=== PATIENT | female | born 1995 | race Hispanic/Latino ===

== ENCOUNTER 2021-10-17 13:54 | Inpatient (IN) | payer OTHER ==
[2021-10-17] MEDS ORDERED: ePHEDrine SULFATE 50 MG/1 ML INJ IV PRN ×2 (15:04→19:29)
[2021-10-17] MEDS ORDERED: ONDANSETRON 4 MG/2 ML INJ IV PRN ×2 (15:04→21:25)
[2021-10-17] MEDS ORDERED: MINERAL OIL 30 ML ORAL LIQD PO PRN (15:04)
[2021-10-17] MEDS ORDERED: TERBUTALINE 1 MG/1 ML INJ SUB-Q PRN (15:04)
[2021-10-17] MEDS ORDERED: fentaNYL 100 MCG/2 ML INJ IV PRN (15:04)
[2021-10-17] MEDS ORDERED: CARBOPROST TROMETHAMINE 250 MCG/1 ML INJ IM PRN (15:04)
[2021-10-17] MEDS ORDERED: LOPERAMIDE 2 MG CAP PO PRN (15:04)
[2021-10-17] MEDS ORDERED: BUTORPHANOL 2 MG/1 ML INJ IV PRN (15:04)
[2021-10-17] MEDS ORDERED: OXYTOCIN 10 UNIT/1 ML INJ IM PRN (15:04)
[2021-10-17] MEDS ORDERED: miSOPROStol 200 MCG TAB PR PRN (15:04)
[2021-10-17] MEDS ORDERED: METHYLERGONOVINE MALEATE 0.2 MG/ML VIAL IM PRN (15:04)
[2021-10-17] MEDS ORDERED: LIDOCAINE (2%) 20 MG/1 ML VIAL 20 ML MDV INFILTRATI ONE (15:30)
[2021-10-17] MEDS ORDERED: LACTATED RINGERS 1,000 ML IV SCH (15:30)
[2021-10-17] MEDS ORDERED: ACETAMINOPHEN 500 MG TAB PO ONE (16:00)
[2021-10-17] MEDS ORDERED: AMPICILLIN/NS 2 GM/100 ML 2 GM/100 ML BAG IV ONE (16:00)
[2021-10-17] MEDS ORDERED: OXYTOCIN DRIP 30 UNITS/500 ML BAG IV SCH ×2 (16:00)
[2021-10-17 17:26] LABS: Hematocrit 36.6 % (30.3-42.9); Hemoglobin 12.4 gm/dl (10.1-14.3); Mean Corpuscular HGB Conc 34 % (30-34); Mean Corpuscular Volume 82 fl (79-97); Platelet Count 299 K/mm3 (140-440); Red Blood Count 4.46 M/mm3 (3.65-5.03)
[2021-10-17 17:40] LABS: Bilirubin,Urine NEG (Negative); Blood,Urine NEG (Negative); Calcium Oxalate Crystals,Urine 2+; Color,Urine Yellow (Yellow); Mucus,Urine 2+ /HPF; Protein,Urine <15 mg/dL mg/dL (Negative); Urobilinogen,Urine < 2.0 mg/dL (<2.0)
[2021-10-17 18:04] LABS: HCG,Quantitative 7096 mIU/mL (0-4); Hepatitis C Virus Antibody Non-Reactive (NonReactive)
[2021-10-17 18:14] LABS: Amphetamine Screen,Urine PRESUMPTIVE NEGATIVE; Benzodiazepines Screen,Urine PRESUMPTIVE NEGATIVE; Cannabinoid Screen,Urine PRESUMPTIVE POSITIVE; Cocaine Screen,Urine PRESUMPTIVE NEGATIVE; Methadone Screen,Urine PRESUMPTIVE NEGATIVE; Opiate Screen,Urine PRESUMPTIVE NEGATIVE
[2021-10-17] MEDS ORDERED: NALOXONE 2 MG/2 ML INJ IV PRN (19:29)
[2021-10-17] MEDS ORDERED: fentaNYL-BUPIV 2 MCG/ML-0.125% 200 MCG/100 ML BAG EPIDURAL SCH (20:00)
[2021-10-17] MEDS ORDERED: AMPICILLIN/NS 1 GM/50 ML 1 GM/50 ML BAG IV SCH (20:00)
--- NOTE | 2021-10-17 20:11 | Anesthesia Consultation ---
Anesthesia Consult and Med Hx Date of service: 10/17/21 - Airway Anesthetic Teeth Evaluation: Poor ROM Head & Neck: Adequate Mental/Hyoid Distance: Adequate Mallampati Class: Class II Intubation Access Assessment: Probably Good - Pulmonary Exam CTA: Yes - Cardiac Exam Cardiac Exam: RRR - Pre-Operative Health Status ASA Pre-Surgery Classification: ASA3 Proposed Anesthetic Plan: Epidural - Pulmonary Hx Smoking: No Hx Asthma: No Hx Respiratory Symptoms: No SOB: No COPD: No Hx Pneumonia: No - Cardiovascular System Hx Hypertension: No - Central Nervous System Hx Neuromuscular Disorder: No Hx Seizures: No Hx Psychiatric Problems: No - Gastrointestinal Hx Gastroesophageal Reflux Disease: Yes - Endocrine Hx Renal Disease: No Hx End Stage Renal Disease: No Hx Insulin Dependent Diabetes: No Hx Non-Insulin Dependent Diabetes: No Hx Hypothyroidism: No Hx Hyperthyroidism: No - Hematic Hx Anemia: No Hx Sickle Cell Disease: No - Other Systems Hx Alcohol Use: No Hx Substance Use: Yes (positive THC ) Hx Obesity: Yes
--- NOTE | 2021-10-17 20:19 | Progress Note ---
Labor Epidural - Labor Epidural Start Time: 19:38 Stop Time: 19:53 Performed by:: JANETTE HUMPHREY Procedure: Patient is requesting epidural for labor pain. H&P and labs reviewed. Procedure explained, questions answered, consent obtained. Patient placed in sitting position with monitors applied. Timeout performed immediately before start of procedure. Prep/drape in usual sterile fashion. Skin localized 3 mL 1% lidocaine at L[3]-L[4] interspace. 17-gauge Touhy epidural needle advanced to YORDY with saline at [8] cm [id number]. No blood/CSF noted via epidural needle. Epidural catheter advanced to [12] cm. Negative aspiration for blood and CSF via catheter, negative response to test dose 3 ml 1.5% lidocaine w/ Epi. Sterile dressing applied followed by tape reinforcement. Patient tolerated procedure well. No immediate complications noted.
--- NOTE | 2021-10-17 20:42 | History and Physical Report ---
History of Present Illness Date of examination: 10/17/21 Date of admission: 10/17/21 13:55 Chief complaint: Leakage of fluid History of present illness: 26-year-old -0-0-1 at 38+0 weeks who presents with a complaint of leakage of fluid since yesterday. The patient also reports regular uterine contractions. There are no records available for review. There is lab evidence that the patient is group beta Streptococcus negative Past History Past Medical History: no pertinent history Past Surgical History: no surgical history Social history: single - Obstetrical History Expected Date of Delivery: 10/31/21 Actual Gestation: 38 Week(s) 0 Day(s) : 2 Para: 1 Hx # Term Pregnancies: 1 Number of Pregnancies: 0 Spontaneous Abortions: 0 Induced : 0 Number of Living Children: 1 Medications and Allergies Allergies Allergy/AdvReac Type Severity Reaction Status Date / Time No Known Allergies Allergy Unverified 10/17/21 15:04 Active Meds: Active Medications Butorphanol Tartrate (Butorphanol 2 Mg/1 Ml Inj) 1 mg IV Q2H PRN PRN Reason: Pain, Moderate(4-6) LABOR PAIN Carboprost Tromethamine (Carboprost Tromethamine 250 Mcg/1 Ml Inj) 250 mcg IM ONCE PRN PRN Reason: Uterine Bleeding Ephedrine Sulfate (Ephedrine Sulfate 50 Mg/1 Ml Inj) 10 mg IV Q2M PRN PRN Reason: Hypotension Fentanyl (Fentanyl 100 Mcg/2 Ml Inj) 100 mcg IV Q2H PRN PRN Reason: Pain,Severe (7-10) LABOR PAIN Oxytocin/Sodium Chloride (Pitocin/Ns 30 Unit/500ml) 30 units in 500 mls @ 2 mls/hr IV TITR CHETAN; Protocol Last Titration: 10/17/21 17:51 Dose: 4 ml/hr, 4 mls/hr Lactated Ringer's (Lactated Ringers) 1,000 mls @ 125 mls/hr IV DIRECT CHETAN Last Admin: 10/17/21 16:42 Dose: 125 mls/hr Oxytocin/Sodium Chloride (Pitocin/Ns 30 Unit/500ml) 30 units in 500 mls @ 40 mls/hr IV TITR CHETAN; Protocol Ampicillin Sodium (Ampicillin/Ns 1 Gm/50 Ml) 1 gm in 50 mls @ 100 mls/hr IV Q4H CHETAN; Protocol Fentanyl/Bupivacaine/Sodium Chlor (Fentanyl-Bupiv 2 Mcg/Ml-0.125%) 200 mcg in 100 mls @ 12 mls/hr EPIDURAL TITR CHETAN; Protocol Loperamide HCl (Loperamide 2 Mg Cap) 2 mg PO ONCE PRN PRN Reason: give with Hemabate Methylergonovine Maleate (Methylergonovine Maleate 0.2 Mg/Ml Vial) 0.2 mg IM ONCE PRN PRN Reason: Uterine Bleeding Mineral Oil (Mineral Oil 30 Ml Oral Liqd) 30 ml PO QHS PRN PRN Reason: Constipation Misoprostol (Misoprostol 200 Mcg Tab) 800 mcg HI ONCE PRN PRN Reason: Uterine Bleeding Naloxone HCl (Naloxone 2 Mg/2 Ml Inj) 0.2 mg IV Q5M PRN PRN Reason: Respiratory sedation Ondansetron HCl (Ondansetron 4 Mg/2 Ml Inj) 4 mg IV Q8H PRN PRN Reason: Nausea And Vomiting Oxytocin (Oxytocin 10 Unit/1 Ml Inj) 10 unit IM ONCE PRN PRN Reason: Uterine Bleeding Terbutaline Sulfate (Terbutaline 1 Mg/1 Ml Inj) 0.25 mg SUB-Q ONCE PRN PRN Reason: Hyperstimulation/Hypertonicity Review of Systems All systems: negative Genitourinary: leakage of fluid, contractions - Vital Signs Vital signs: Vital Signs Pulse Pulse Ox 85 97 10/17/21 14:24 10/17/21 14:24 Temp Pulse Resp BP Pulse Ox 97.6 F 85 18 104/54 96 10/17/21 20:30 10/17/21 20:36 10/17/21 14:37 10/17/21 20:36 10/17/21 20:36 - Physical Exam Breasts: Positive: deferred Cardiovascular: Regular rate Lungs: Positive: Clear to auscultation Abdomen: Positive: normal appearance - Obstetrical Cervical Dilatation: 5 Results Result Diagrams: 10/17/21 16:55 Abnormal lab results 10/17/21 Range/Units 15:15 HCG, Quant 7096 H (0-4) mIU/mL All other labs normal. Assessment and Plan - Patient Problems (1) Active labor at term Current Visit: Yes Status: Acute Plan to address problem: Admit to labor and delivery
--- NOTE | 2021-10-17 21:24 | Procedure Note ---
OB Delivery Note - Delivery Date of Delivery: 10/17/21 Surgeon: MENDY RUELAS Estimated blood loss: 100cc - Vaginal Delivery presentation: vertex Delivery position: OA Intrapartum events: none Delivery augmentation: pitocin Delivery monitor: external FHT, external uterine Route of delivery: Delivery placenta: spontaneous Delivery cord: nuchal cord, 3 umbilical vessels Episiotomy: none Delivery laceration: none Anesthesia: epidural - A at 1 minute: 8 (Weight 6 pounds 6 ounces) at 5 minutes: 9 Gender: Male (weight)
[2021-10-17] MEDS ORDERED: WITCH HAZEL/ GLYCERIN PAD TP PRN (21:25)
[2021-10-17] MEDS ORDERED: diphenhydrAMINE 25 MG CAP PO PRN (21:25)
[2021-10-17] MEDS ORDERED: LANOLIN/ZINC/DIMETHICONE (LANSINOH) 7 GM TP PRN (21:25)
[2021-10-17] MEDS ORDERED: ACETAMINOPHEN 325 MG TAB PO PRN (21:25)
[2021-10-17] MEDS ORDERED: MAGNESIUM HYDROXIDE (MOM) ORAL LIQD UDC PO PRN (21:25)
[2021-10-17] MEDS ORDERED: PROMETHAZINE 25 MG RECT SUPP PR PRN (21:25)
[2021-10-17] MEDS ORDERED: PROMETHAZINE 25 MG TAB PO PRN (21:25)
[2021-10-17] MEDS ORDERED: IBUPROFEN 800 MG TAB PO SCH (22:00)
[2021-10-18] MEDS: HYDROcodone/ACETAMINOPHEN 5-325 MG TAB PO PRN ×3 (04:27→20:46)
--- NOTE | 2021-10-18 07:47 | Progress Note ---
Assessment and Plan A: PPD#1 s/p at term P: Routine care Anticipate discharge tomorrow Subjective - Subjective Date of service: 10/18/21 Principal diagnosis: s/p at term Interval history: Pt reports perineal burning as though she has a tear even though she did not requite stitches. Otherwise she is feeling well. She reports having care at [place]. Patient reports: appetite normal, voiding normally, pain well controlled, ambulating normally : doing well Objective - Vital Signs Latest vital signs: Vital Signs Temp Pulse Resp BP BP Pulse Ox Pulse Ox 10/18/21 04:27 18 100 10/18/21 04:22 97.8 F 71 20 107/58 98 10/18/21 00:29 98 10/17/21 23:35 97.6 F 73 16 119/67 98 10/17/21 23:08 69 100/58 10/17/21 23:05 69 100 10/17/21 23:00 86 100 10/17/21 22:55 65 100 10/17/21 22:53 66 101/57 10/17/21 22:50 68 100 10/17/21 22:45 71 98 10/17/21 22:40 68 99 10/17/21 22:38 73 100/52 10/17/21 22:35 75 99 10/17/21 22:30 72 98 10/17/21 22:25 69 99 10/17/21 22:23 70 103/52 10/17/21 22:20 73 99 10/17/21 22:15 74 100 10/17/21 22:10 76 98 10/17/21 22:08 76 107/55 10/17/21 22:05 84 98 10/17/21 22:03 70 109/55 10/17/21 22:00 76 98 10/17/21 21:55 73 99 10/17/21 21:53 75 88/52 10/17/21 21:50 68 98 10/17/21 21:45 78 98 10/17/21 21:40 82 100 10/17/21 21:37 82 91/49 10/17/21 21:35 99 H 99 10/17/21 21:34 76 75/39 10/17/21 21:32 75 68/37 10/17/21 21:30 76 98 10/17/21 21:27 89 89/41 05 21:22 73 92/45 05 21:16 98 H 96 10/17/21 21:11 91 H 96 10/17/21 21:06 81 97 05 21:03 71 100/48 05 21:01 77 97 05 20:58 103 H 113/54 10/17/21 20:56 67 98 05 20:55 88 90 10/17/21 20:52 73 97/51 05 20:51 77 97 10/17/21 20:47 75 91/52 94 10/17/21 20:46 72 95 05 20:42 72 97/54 10/17/21 20:41 68 97 10/17/21 20:36 85 104/54 96 10/17/21 20:33 88 110/57 10/17/21 20:31 87 98 10/17/21 20:30 97.6 F 10/17/21 20:29 63 100/50 05 20:27 69 90/42 10/17/21 20:26 62 99 05 20:24 70 126/58 10/17/21 20:21 84 131/73 100 10/17/21 20:18 72 123/66 10/17/21 20:16 82 99 10/17/21 20:15 72 129/75 10/17/21 20:12 82 138/84 10/17/21 20:11 75 99 10/17/21 20:08 83 108/55 10/17/21 20:06 83 98 10/17/21 20:04 83 L 10/17/21 20:03 89 111/73 05 20:01 72 97 05 20:00 76 127/71 05 19:58 82 94 05 19:57 63 117/60 05 19:56 69 98 05 19:54 78 122/69 05 19:51 82 97 05 19:46 86 97 05 19:41 90 95 10/17/21 19:39 78 0 L 10/17/21 19:36 81 97 10/17/21 19:31 81 98 05 19:26 71 97 05 19:24 83 94 05 19:21 84 97 10/17/21 19:16 80 133/78 97 97 05 19:15 87 94 10/17/21 19:14 97.7 F 10/17/21 19:11 78 96 05 19:07 93 H 94 10/17/21 19:06 74 96 05 19:02 82 90 05 19:01 75 96 05 18:58 72 133/67 05 18:57 83 94 10/17/21 18:56 66 96 05 18:51 75 96 10/17/21 18:46 77 94 10/17/21 18:43 82 93 10/17/21 18:41 80 96 10/17/21 18:36 82 96 10/17/21 18:31 73 97 10/17/21 18:26 75 97 10/17/21 18:21 74 98 05 18:16 70 98 10/17/21 18:11 86 97 10/17/21 18:06 70 96 10/17/21 18:03 73 94 10/17/21 18:01 70 96 10/17/21 17:57 68 120/62 05 17:56 73 96 10/17/21 17:51 84 95 10/17/21 17:50 67 94 10/17/21 17:46 69 95 05 17:42 72 92 05 17:41 71 95 05 17:37 68 94 05 17:36 70 94 10/17/21 17:32 72 94 05 17:31 72 94 05 17:26 73 95 05 17:21 71 94 05 17:19 77 94 05 17:16 74 96 05 17:13 65 94 10/17/21 17:11 80 96 05 17:06 72 97 05 17:01 81 97 05 16:57 72 119/61 05 16:56 67 97 0522 16:48 98.2 F 10/17/21 15:55 75 94 10/17/21 15:54 74 95 10/17/21 15:49 77 95 10/17/21 15:44 79 96 10/17/21 15:40 88 94 10/17/21 15:39 91 H 97 10/17/21 15:34 77 97 10/17/21 15:29 82 96 10/17/21 15:27 82 94 10/17/21 15:24 73 95 10/17/21 15:22 79 94 10/17/21 15:19 79 96 10/17/21 15:14 85 97 10/17/21 15:09 87 95 10/17/21 15:04 81 95 10/17/21 14:59 81 96 10/17/21 14:54 80 97 10/17/21 14:51 82 116/66 116/66 10/17/21 14:49 77 96 10/17/21 14:44 81 97 10/17/21 14:39 84 98 10/17/21 14:37 99.1 F 83 18 142/77 96 97 10/17/21 14:34 104 H 95 10/17/21 14:29 79 96 10/17/21 14:25 90 142/77 10/17/21 14:24 85 97 Intake and Output 10/17/21 10/18/21 10/18/21 22:59 06:59 14:59 Intake Total 2.333 Output Total 200 50 Balance -197.667 -50 Intake: IV 2.333 PITOCin/NS 30 UNIT/500ML 2.333 30 units In 500 ml @ 2 mls/hr IV TITR CHETAN Rx#: [id number] Output: Urine 200 50 Indwelling Catheter 200 50 Other: Total, Output Amount 200 50 # Voids Void 1 Estimated Blood Loss 100 - Exam Breasts: Present: deferred Abdomen: Present: soft Extremities: Present: edema (trace) - Labs Labs: Abnormal lab results 10/17/21 Range/Units 15:15 HCG, Quant 7096 H (0-4) mIU/mL
[2021-10-18] MEDS ORDERED: BENZOCAINE/MENTHOL 20/0.5% TOP SPRAY 56 GM TP PRN (08:00)
[2021-10-18 09:14] LABS: Hematocrit 33.9 % (30.3-42.9); Hemoglobin 11.2 gm/dl (10.1-14.3)
--- NOTE | 2021-10-18 10:01 | Post Anesthesia Evaluation ---
- Post Anesthesia Evaluation Patient Participated: Yes Airway Patent: Yes Stable Respiratory Function: Yes Nausea/Vomiting: No Temp > 96.8F: Yes Pain Manageable: Yes Adequeate Hydration: Yes Anesthesia Complications: No Block Receding Appropriately: Yes Patient on Ventilator: No
--- NOTE | 2021-10-18 18:13 | Discharge Summary ---
Providers - Providers Date of Admission: 10/17/21 13:55 Date of discharge: 10/19/21 Attending physician: MENDY RUELAS 10/18/21 06:59 Consult to Case Management [CONS] Routine Services Needed at Discharge: Sleeping Bag Filler Notified:: no Additional Physician Instructions: + THC, limited care Primary care physician: MENDY RUELAS Hospitalization Reason for admission: rupture of membranes Delivery: Procedure details: Please see delivery note Episiotomy: none Laceration: none Other procedures: none complications: none Discharge diagnosis: IUP at term delivered baby: male Hospital course: This patient was admitted with rupture of membranes at term and went on to have a spontaneous vaginal delivery which she tolerated well. Her course was uncomplicated and she met discharge criteria on PPD#2. She does not desire circumcision for her son. his Condition at discharge: Stable Disposition: 01 HOME / SELF CARE / HOMELESS - Discharge Diagnoses (1) SROM (spontaneous rupture of membranes) Status: Acute (2) Active labor at term Status: Acute (3) Term of male Status: Acute Plan - Discharge Medications Prescriptions: Ibuprofen [Motrin] 800 mg PO Q8HR PRN #30 tablet PRN Reason: Pain, Moderate (4-6) - Provider Discharge Summary Activity: routine, no sex for 6 weeks, no heavy lifting 4 weeks, no strenuous exercise Diet: routine Instructions: routine Additional instructions: [] Smoking cessation referral if applicable(refer to patient education folder for contact #) [] Refer to [facility] Booklet Call your doctor immediately for: * Fever > 100.5 * Heavy vaginal bleeding ( >1 pad per hour) * Severe persistent headache * Shortness of breath * Reddened, hot, painful area to leg or breast * Drainage or odor from incision. * Keep incision clean and dry at all times and follow doctor's instructions regarding bathing/showering - Follow up plan Follow up: MACHELLE MARQUEZ, [employer] [Advanced Practice Nurse] - 6 Weeks
[2021-10-19] MEDS: HYDROcodone/ACETAMINOPHEN 5-325 MG TAB PO PRN (13:18)
[2021-10-19 14:29] VITALS: BP 134/79
== END 2021-10-19 14:55 | disposition home or self-care (01) | DRG 775 ==
LOC: TRG 13:54 → APU 13:55 → TRG 15:12 → LD 16:11 → OB 23:47
PROVIDERS: ADMIT Obstetrics & Gynecology; ATTEND Obstetrics & Gynecology
PROC: 10E0XZZ Delivery of Products of Conception, External Approach (ICD-10-PCS; principal; 2021-10-17)
PROC: 3E0R3BZ Introduction of Anesthetic Agent into Spinal Canal, Percutaneous Approach (ICD-10-PCS; 2021-10-17)
PROC: 00HU33Z Insertion of Infusion Device into Spinal Canal, Percutaneous Approach (ICD-10-PCS; 2021-10-17)
DX: O69.81X0 Labor and delivery complicated by cord around neck, without compression, not applicable or unspecified (principal); O99.62 Diseases of the digestive system complicating childbirth; O99.214 Obesity complicating childbirth; O99.324 Drug use complicating childbirth; K21.9 Gastro-esophageal reflux disease without esophagitis; Z20.822 Contact with and (suspected) exposure to COVID-19; F12.90 Cannabis use, unspecified, uncomplicated; Z3A.38 38 weeks gestation of pregnancy; Z37.0 Single live birth
CPT/HCPCS: 36415; 80307; 81001; 84702; 85014; 85018; 85027; 86592; 86706; 86762; 86803; 86850; 86900; 86901; 87086; 87806; 99211; G0378; J3490; G0463; J0290; J2590; J7120; U0003